=== PATIENT | male | born 1960 | race African-American/Black ===

== ENCOUNTER 2025-08-27 20:41 | Observation (INO) ==
--- NOTE | 2025-08-27 21:13 | DR.SOBA ---
HPI Time Seen Time Seen by Provider: 08/27/25 20:50 HPI Comment HPI Comment: Patient reports episode of severe shortness of breath at home earlier this evening after taking a shot of liquor. Patient reports that he tried to take a nebulized breathing treatment at home but the shortness of breath continued get worse and he got hot and sweaty and called EMS. EMS noted O2 sats to be in the 70s upon arrival and administered albuterol and placed the patient on oxygen via nasal cannula at 2 L after which oxygen saturations improved to upper 90s. On examination in the emergency room patient is at rest and in no distress on 2 L of oxygen via nasal cannula. Patient denies any associated symptoms including fever, shortness of breath earlier in the day, fatigue or other constitutional symptoms. Patient reports that he does not have a PCP in our area and that he just moved here from [facility] approximately 3 weeks ago. Of note patient was seen in the emergency department on Sunday for similar problem. Patient reports that he does smoke and admits to smoking approximately 5 cigarettes daily. PMH PMH Past Medical History: COPD and Hypertension Past Surgical History: Yes Surgical History: Abdominal Surgery Social History Do you use any recreational Drugs:: Yes (THC) ROS Review of Systems Constitutional: No Symptoms Reported; negative Chills, Fever or Fatigue Eyes: No Symptoms Reported ENTM: No Symptoms Reported Respiratoy: No Symptoms Reported, See HPI, Short of Breath and Wheezing; negative Stridor or Hemoptysis Cardiovascular: No Symptoms Reported; negative Chest Pain, Palpitations, Syncope or Cyanosis Gastrointestinal/Abdominal: No Symptoms Reported Genitourinary: No Symptoms Reported Neurological: No Symptoms Reported Musculoskeletal: No Symptoms Reported Integumentary: No Symptoms Reported Hematologic/Lymphatic: No Symptoms Reported Endocrine: No Symptoms Reported Psychiatric: No Symptoms Reported All Other Systems: Reviewed and Negative PE Vital Signs Vitals: Vital Signs Temperature 98.5 F Pulse Rate 72 Pulse Rate 73 Pulse Rate 89 Pulse Rate 69 Pulse Rate 69 Pulse Rate 72 Pulse Rate 92 Pulse Rate 79 Pulse Rate 79 Pulse Rate 71 Pulse Rate 73 Pulse Rate 71 Pulse Rate 73 Pulse Rate 78 Pulse Rate 75 Pulse Rate 84 Pulse Rate 87 Pulse Rate 86 Respiratory Rate 23 Respiratory Rate 17 Respiratory Rate 27 Respiratory Rate 18 Respiratory Rate 19 Respiratory Rate 18 Respiratory Rate 33 Respiratory Rate 24 Respiratory Rate 22 Respiratory Rate 18 Respiratory Rate 22 Respiratory Rate 19 Respiratory Rate 24 Respiratory Rate 23 Respiratory Rate 21 Respiratory Rate 27 Respiratory Rate 28 Respiratory Rate 24 Blood Pressure 149/83 Blood Pressure 147/80 Blood Pressure 183/97 Blood Pressure 181/79 Blood Pressure 141/79 Blood Pressure 142/86 Blood Pressure 146/89 Blood Pressure 176/102 O2 Sat by Pulse Oximetry 99 O2 Sat by Pulse Oximetry 99 O2 Sat by Pulse Oximetry 94 O2 Sat by Pulse Oximetry 100 O2 Sat by Pulse Oximetry 99 O2 Sat by Pulse Oximetry 99 O2 Sat by Pulse Oximetry 100 O2 Sat by Pulse Oximetry 100 O2 Sat by Pulse Oximetry 100 O2 Sat by Pulse Oximetry 100 O2 Sat by Pulse Oximetry 100 O2 Sat by Pulse Oximetry 100 O2 Sat by Pulse Oximetry 99 O2 Sat by Pulse Oximetry 99 O2 Sat by Pulse Oximetry 99 O2 Sat by Pulse Oximetry 99 O2 Sat by Pulse Oximetry 98 General Limitations: No Limitations General Appearance: Alert and In No Apparent Distress Head Head Exam: Normal Inspection Eyes Eye exam: Normal Appearance ENT ENT Exam: Normal Exam Neck Neck Exam: Normal Inspection Chest Chest Inspection: Normal Inspection Respiratory Respiratory Exam: Prolonged Expiratory Phase and Other (Expiratory wheezing) Respiratory Exam: Bilateral: Clear to Auscultation Cardiovascular Cardiovascular Exam: Regular Rate and Normal Rhythm Abdominal Exam Abdominal Exam: Normal Inspection, Normal Bowel Sounds and Soft Extremities Extremities Exam: Normal Inspection Back Back Exam: Normal Inspection Neurologic Neurological Exam: Alert and Oriented X3 Psychiatric Psychiatric Exam: Normal Affect and Normal Mood Skin Skin Exam: Warm, Dry, Intact and Normal Color COURSE Treatment Treatment: Patient showed some improvement with Solu-Medrol and DuoNebs via EMS and oxygen at 2 L via nasal cannula in the emergency department. Patient has not been able to tolerate coming off of oxygen, becoming diaphoretic after just a few seconds after removing the oxygen. Plan to continue Solu-Medrol every 8 hours. Continue DuoNebs every 4 hours. Discussed admission, patient is agreeable. Consultation Consultation Comments: Discussed case with Dr. Church and she is agreeable to admission. Critical Care Notes Total Time (mins): 33 Critical Diagnosis: Respiratory distress, COPD exacerbation Critical Interventions: Oxygen, steroids, nebulizer. Time spent evaluating patient, ordering and reviewing diagnostic studies, arranging for admission. ROR Labs Reviewed Laboratory Results Reviewed?: Yes 08/27/25 21:12 08/27/25 21:12 Laboratory: WBC 11.8 X10^3/uL (3.6-10.0) H 08/27/25 21:12 RBC 4.19 X10^6/uL (4.7-6.0) L 08/27/25 21:12 Hgb 13.5 g/dL (13.5-18.0) 08/27/25 21:12 Hct 40.7 % (42.0-54.0) L 08/27/25 21:12 MCV 97.1 fL (80.0-100.0) 08/27/25 21:12 MCH 32.2 pg (27.0-34.0) 08/27/25 21:12 MCHC 33.2 g/dL (33.0-35.0) 08/27/25 21:12 RDW 14.1 % (11.6-16.5) 08/27/25 21:12 Plt Count 222 X10^3/uL (150.0-450.0) 08/27/25 21:12 MPV 7.7 fL (7.4-11.0) 08/27/25 21:12 Neut % (Auto) 74.6 % (42.0-75.0) 08/27/25 21:12 Lymph % (Auto) 15.9 % (21.0-51.0) L 08/27/25 21:12 Whiteside % (Auto) 6.8 % (0.0-13.0) 08/27/25 21:12 Eos % (Auto) 2.0 % (0.9-2.9) 08/27/25 21:12 Baso % (Auto) 0.7 % (0.2-1.0) 08/27/25 21:12 Neut # (Auto) 8.8 x10^3/uL (2.2-4.8) H 08/27/25 21:12 Lymph # (Auto) 1.9 X10^3/uL (1.3-2.9) 08/27/25 21:12 Whiteside # (Auto) 0.8 x10^3/uL (0.3-0.8) 08/27/25 21:12 Eos # (Auto) 0.2 x10^3/uL (0.0-0.2) 08/27/25 21:12 Baso # (Auto) 0.1 X10^3/uL (0.0-0.1) 08/27/25 21:12 Absolute Nucleated RBC 0.0 /100WBC 08/27/25 21:12 Sodium 142 mmol/L (136-145) 08/27/25 21:12 Corrected Sodium TNP 08/27/25 21:12 Potassium 4.0 mmol/L (3.5-5.1) 08/27/25 21:12 Chloride 104 mmol/L (98-107) 08/27/25 21:12 Carbon Dioxide 30.3 mmol/L (21-32) 08/27/25 21:12 BUN 21 mg/dL (7-18) H 08/27/25 21:12 Creatinine 0.94 mg/dL (0.70-1.30) 08/27/25 21:12 Est GFR (MDRD) Af Amer > 60 (>60) 08/27/25 21:12 Est GFR (MDRD) Non-Af > 60 (>60) 08/27/25 21:12 Glucose 80 mg/dL (65-99) 08/27/25 21:12 Calcium 8.4 mg/dL (8.5-10.1) L 08/27/25 21:12 Corrected Calcium 9.1 mg/dL (8.5-10.1) 08/27/25 21:12 Total Bilirubin 0.30 mg/dL (0.2-1.0) 08/27/25 21:12 AST 37 Units/L (15-37) 08/27/25 21:12 ALT 57 Units/L (12-78) 08/27/25 21:12 Alkaline Phosphatase 55 Units/L (46-116) 08/27/25 21:12 Creatine Kinase 198 Units/L (39-308) 08/27/25 21:12 Troponin I High Sens 38.9 ng/L (4.0-60.0) 08/27/25 21:12 Total Protein 6.9 g/dL (6.4-8.2) 08/27/25 21:12 Albumin 3.1 g/dL (3.4-5.0) L 08/27/25 21:12 Globulin 3.8 g/dL (2.5-4.5) 08/27/25 21:12 Albumin/Globulin Ratio 0.8 Ratio (1.1-2.1) L 08/27/25 21:12 Other Results Comments: Name: Serjio Jones : 1960 Sex: M Location: ER Order Number(s): [id number] Procedure(s):CHEST CT W/O CON Ordering Physician: Benjamin Miller Primary Care: NFD,None Service Date: 08/27/25 Service Time: 2305 EXAM: CT CHEST WITHOUT CONTRAST HISTORY: Short of breath COMPARISON: None. TECHNIQUE: Axial images were acquired of the chest without IV contrast. Sagittal and coronal reformatted images were provided. All images were reviewed in a variety of windows and levels. 3D MIPS were performed and reviewed. RADIATION REDUCTION TECHNIQUE: Automated exposure control, Adjustment of the mA and/or kV according to patient size, or iterative reconstruction techniques were used. FINDINGS: CHEST: Please note that lack of IV contrast limits evaluation of soft tissue structures and vascular detail THYROID GLAND: The thyroid gland is grossly unremarkable. HEART AND VESSELS: The heart size is within normal limits. There is no evidence of a pericardial effusion. The thoracic aorta is normal is size without evidence of an aneurysm. The main pulmonary artery size is within normal limits. LYMPHNODES: There is no evidence of axillary, mediastinal, or hilar lymphadenopathy. AIRWAY: Severe emphysematous changes are noted. There is a small focus of ground-glass opacities that is located in the retrocardiac posterior left lower lobe. The precise etiology of this is not clear. This could be due to acute or chronic process. There is no pleural effusion or pneumothorax. LUNGS: The lungs are clear. No focal consolidation, pleural effusion, or pneumothorax is seen. ESOPHAGUS: The esophagus is grossly unremarkable. BONES: The visualized bones demonstrate degenerative changes. There are no concerning lytic or blastic lesions identified. UPPER ABDOMINAL STRUCTURES: The visualized portions of the upper abdominal structures are unremarkable. IMPRESSION: 1. Severe emphysematous changes are noted. 2. There is a small focus of ground-glass opacities that is located in the retrocardiac posterior left lower lobe. The precise etiology of this is not clear. This could be due to acute or chronic process. 3. The heart size is within normal limits. THIS IS AN ELECTRONICALLY VERIFIED FINAL REPORT 08/27/2025 11:38 PM - Electronically signed by Sam Phelps MD XRAY X-ray Results: Name: Serjio Jones : 1960 Sex: M Location: ER Order Number(s): [id number] Procedure(s):CHEST, PA/LAT ADULT X-RAY Ordering Physician: Benjamin Miller Primary Care: AMOS,None Service Date: 08/27/25 Service Time: 2100 EXAM: CHEST 2 VIEWS HISTORY: Shortness of Breath; Patient brought in er via ems with complaints of acute onset SOB that started 15 mins prior to arrival. Per ems upon arrival to scene pt O2 sat was 78% on room air with a RR of 40. Ems administered an albuteral treatment and symptoms improved. pt denies pain and verbalizes relief of symptoms upon er arrival. Albuteral neb tx X3 today. pt was seen at [facility] er on 08/25 and was dx with COPD. COMPARISON: Portable chest x-ray dated August 25, 2025 TECHNIQUE: Frontal and lateral views of the chest were submitted for interpretation. FINDINGS: Severe emphysematous changes are redemonstrated complicating interpretation of this exam. There is a vertically oriented linear area of relative increased density at the right upper to mid lung zone levels that could be due to summation of shadows however can not exclude airspace disease. No evidence for pleural effusion. No evidence for pneumothorax. Heart size and pulmonary vasculature are within normal limits. IMPRESSION: Severe emphysematous changes are redemonstrated complicating interpretation of this exam. There is a vertically oriented linear area of relative increased density at the right upper to mid lung zone that could be due to summation of shadows however can not exclude airspace disease. Consider CT of the chest for further evaluation. THIS IS AN ELECTRONICALLY VERIFIED FINAL REPORT 08/27/2025 9:55 PM - Electronically signed by Luis Cross DO Opioid Opioid Risk Tool Age (Evin box if 16-45): No History of Preadolescent Sexual Abuse: No Total: 0 Total Score Risk Category: Low Risk Copyright: Darrian RIVAS predicting aberrant behaviors Discharge Plan Diagnosis Discharge Problem: COPD exacerbation, Acute respiratory distress Discharge Plan Patient Disposition: ADMITTED INPATIENT Condition: Stable Prescriptions: No Action amiodarone 200 mg Tablet 200 mg PO BID metoprolol tartrate 25 mg Tablet 25 mg PO BID Eliquis 5 mg Tablet 5 mg PO BID ipratropium-albuterol 0.5 mg-3 mg(2.5 mg base)/3 mL Solution For Nebulization 3 ml INHALATION Q6H PRN30 Days Qty: 360 1RF albuterol sulfate 90 mcg/actuation Hfa Aerosol Inhaler 2 puff INHALATION Q4-6H PRN30 Days Qty: 1 1RF budesonide-formoterol [Symbicort] 160-4.5 mcg/actuation Hfa Aerosol Inhaler 2 puff INHALATION DAILY 30 Days Qty: 1 1RF Health Concerns: Post Hospitalization: new medications and changes needed to prevent readmission or further decline. Pt educated and given instructions on all concerns. Plan of Treatment: Continue with present treatment and follow up plan. Pt is to keep follow up appointment as instructed and take medications as ordered. Orders to Discharge Patient Discharge Orders: Transfer (Routine); Ordered 08/28/25 Ordered By: Benjamin Miller Follow ups/Referrals Follow ups/Referrals: NFD,None [Primary Care Provider] - 3 days Instructions Stand Alone Forms: Find Help Web Site, Post Hospital Follow Up Care Print Language: SWEDISH
--- NOTE | 2025-08-27 21:18 | EKG ---
Test Reason : Shortness of breath Blood Pressure : */* mmHG Vent. Rate : 78 BPM Atrial Rate : 78 BPM P-R Int : 130 ms QRS Dur : 96 ms QT Int : 382 ms P-R-T Axes : 83 -6 80 degrees QTc Int : 435 ms Normal sinus rhythm Anterior infarct (cited on or before 25-AUG-2025) Abnormal ECG When compared with ECG of 25-AUG-2025 19:08, Incomplete right bundle branch block is no longer present Confirmed by Bennie Burch MD ([id number]) on 08/28/2025 6:47:33 AM Referred By: Confirmed By: Bennie Burch MD
[2025-08-27 21:23] LABS: RED CELL DISTRIBUTION WIDTH 14.1 % (11.6-16.5)
[2025-08-27 21:27] LABS: MEAN PLATELET VOLUME 7.7 fL (7.4-11.0)
[2025-08-27 21:37] LABS: COR CA(FOR HYPOALB) 9.1 mg/dL (8.5-10.1); CREATININE 0.94 mg/dL (0.70-1.30); eGFR NON BLACK RACES > 60 (>60)
--- NOTE | 2025-08-27 21:59 | RAD ---
EXAM: CHEST 2 VIEWS HISTORY: Shortness of Breath; Patient brought in er via ems with complaints of acute onset SOB that started 15 mins prior to arrival. Per ems upon arrival to scene pt O2 sat was 78% on room air with a RR of 40. Ems administered an albuteral treatment and symptoms improved. pt denies pain and verbalizes relief of symptoms upon er arrival. Albuteral neb tx X3 today. pt was seen at [facility] er on 08/25 and was dx with COPD. COMPARISON: Portable chest x-ray dated August 25, 2025 TECHNIQUE: Frontal and lateral views of the chest were submitted for interpretation. FINDINGS: Severe emphysematous changes are redemonstrated complicating interpretation of this exam. There is a vertically oriented linear area of relative increased density at the right upper to mid lung zone levels that could be due to summation of shadows however can not exclude airspace disease. No evidence for pleural effusion. No evidence for pneumothorax. Heart size and pulmonary vasculature are within normal limits. IMPRESSION: Severe emphysematous changes are redemonstrated complicating interpretation of this exam. There is a vertically oriented linear area of relative increased density at the right upper to mid lung zone that could be due to summation of shadows however can not exclude airspace disease. Consider CT of the chest for further evaluation. THIS IS AN ELECTRONICALLY VERIFIED FINAL REPORT 08/27/2025 9:55 PM - Electronically signed by Luis Cross DO
[2025-08-27] MEDS: APRESOLINE INJ 20 MG VIAL IVP ONE (22:02)
--- NOTE | 2025-08-27 23:42 | CT ---
EXAM: CT CHEST WITHOUT CONTRAST HISTORY: Short of breath COMPARISON: None. TECHNIQUE: Axial images were acquired of the chest without IV contrast. Sagittal and coronal reformatted images were provided. All images were reviewed in a variety of windows and levels. 3D MIPS were performed and reviewed. RADIATION REDUCTION TECHNIQUE: Automated exposure control, Adjustment of the mA and/or kV according to patient size, or iterative reconstruction techniques were used. FINDINGS: CHEST: Please note that lack of IV contrast limits evaluation of soft tissue structures and vascular detail THYROID GLAND: The thyroid gland is grossly unremarkable. HEART AND VESSELS: The heart size is within normal limits. There is no evidence of a pericardial effusion. The thoracic aorta is normal is size without evidence of an aneurysm. The main pulmonary artery size is within normal limits. LYMPHNODES: There is no evidence of axillary, mediastinal, or hilar lymphadenopathy. AIRWAY: Severe emphysematous changes are noted. There is a small focus of ground-glass opacities that is located in the retrocardiac posterior left lower lobe. The precise etiology of this is not clear. This could be due to acute or chronic process. There is no pleural effusion or pneumothorax. LUNGS: The lungs are clear. No focal consolidation, pleural effusion, or pneumothorax is seen. ESOPHAGUS: The esophagus is grossly unremarkable. BONES: The visualized bones demonstrate degenerative changes. There are no concerning lytic or blastic lesions identified. UPPER ABDOMINAL STRUCTURES: The visualized portions of the upper abdominal structures are unremarkable. IMPRESSION: 1. Severe emphysematous changes are noted. 2. There is a small focus of ground-glass opacities that is located in the retrocardiac posterior left lower lobe. The precise etiology of this is not clear. This could be due to acute or chronic process. 3. The heart size is within normal limits. THIS IS AN ELECTRONICALLY VERIFIED FINAL REPORT 08/27/2025 11:38 PM - Electronically signed by Sam Phelps MD
[2025-08-28 00:43] LABS: ABG BASE EXCESS 5.8 mmol/L (-2.0-2.0); ABG OXYGEN SATURATION 89.0 % (90-100); ABG PH 7.390 (7.35-7.45); ABG PO2 57.0 mmHg (80.0-100.0)
[2025-08-28 00:44] LABS: ABG PCO2 53.0 mmHg (35.0-45.0)
[2025-08-28 00:45] LABS: ABG ALLEN TEST POS; ABG HCO3 32.1 mmol/L (22-26)
[2025-08-28] MEDS ORDERED: ULTRAM PO PRN (01:33)
[2025-08-28] MEDS ORDERED: TYLENOL 325 MG TAB PO PRN (01:33)
[2025-08-28] MEDS ORDERED: MORPHINE SULFATE INJ 2 MG INJ IVP PRN (01:33)
[2025-08-28] MEDS ORDERED: NORCO 5/325 MG TAB PO PRN (01:33)
[2025-08-28 02:05] VITALS: BMI 18.4
[2025-08-28] MEDS: DUONEB 0.5 MG/3 MG (3 mL) NEB SCH (05:28)
[2025-08-28 05:58] LABS: COR CA(FOR HYPOALB) 9.4 mg/dL (8.5-10.1); COR NA(FOR HYPERGLY) 143 mmol/L (136-145); CREATININE 1.08 mg/dL (0.70-1.30); MEAN PLATELET VOLUME 8.8 fL (7.4-11.0); RED CELL DISTRIBUTION WIDTH 13.8 % (11.6-16.5); eGFR NON BLACK RACES > 60 (>60)
[2025-08-28] MEDS ORDERED: DUONEB 0.5 MG/3 MG (3 mL) NEB SCH (06:00)
[2025-08-28 06:50] LABS: BAND NEUTROPHILS % 1 % (0-10); PLATELET MORPHOLOGY COMMENT NORMAL (NORMAL)
[2025-08-28] MEDS: CONSULT PHARMACY - POTASSIUM & MAGNESIUM XX SCH (07:10)
[2025-08-28] MEDS: LOPRESSOR TAB 25 MG PO SCH (08:22)
[2025-08-28] MEDS: ELIQUIS PO SCH (08:22)
[2025-08-28] MEDS: ROBITUSSIN DM PO SCH (08:22)
[2025-08-28] MEDS: PROTONIX TAB 40 MG PO SCH (08:22)
[2025-08-28] MEDS: CORDARONE TAB 200 MG PO SCH (08:22)
[2025-08-28] MEDS: PULMICORT NEB TX 0.5 MG NEB SCH (08:50)
--- NOTE | 2025-08-28 12:28 | DR.H&P ---
H&P History & Physical for Day of: H&P Date: 08/28/25 Chief Complaint Chief Complaint: SOB, CCC History of Present Illness History of Present Illness: Patient reports episode of severe shortness of breath at home earlier this evening after taking a shot of liquor. Patient reports that he tried to take a nebulized breathing treatment at home but the shortness of breath continued get worse and he got hot and sweaty and called EMS. EMS noted O2 sats to be in the 70s upon arrival and administered albuterol and placed the patient on oxygen via nasal cannula at 2 L after which oxygen saturations improved to upper 90s. On examination in the emergency room patient is at rest and in no distress on 2 L of oxygen via nasal cannula. Patient denies any associated symptoms including fever, shortness of breath earlier in the day, fatigue or other constitutional symptoms. Patient reports that he does not have a PCP in our area and that he just moved here from [facility] approximately 3 weeks ago. Of note patient was seen in the emergency department on Sunday for similar problem. Past Medical History Past Medical History: COPD and Hypertension Past Surgical History Surgical History: Abdominal Surgery Social History Does patient currently use any type of tobacco product: Yes Have you used tobacco products in the last 12 months: Yes Type of Tobacco Use: Cigarettes Does any household member use tobacco: Yes Alcohol Use: Occasionally Drug Use: Cocaine and Marijuana Medications Home Medications: Home Medications Medication Instructions Recorded Confirmed Type amiodarone 200 mg tablet 200 mg PO BID 08/25/2508/28 History apixaban 5 mg tablet (Eliquis) 5 mg PO BID 08/25/25 History metoprolol tartrate 25 mg tablet 25 mg PO BID 08/25/25 08/28/25 History Allergies Allergies Allergy/AdvReac Type Severity Reaction Status Date / Time No Known Allergies Allergy Verified 08/25/25 19:02 Labs 08/28/25 04:37 08/28/25 04:37 Labs: 08/28/25 06:00 Sputum - Expectorated Sputum - Final Laboratory WBC 10.9 X10^3/uL (3.6-10.0) H 08/28/25 04:37 RBC 4.21 X10^6/uL (4.7-6.0) L 08/28/25 04:37 Hgb 13.7 g/dL (13.5-18.0) 08/28/25 04:37 Hct 40.8 % (42.0-54.0) L 08/28/25 04:37 MCV 97.0 fL (80.0-100.0) 08/28/25 04:37 MCH 32.6 pg (27.0-34.0) 08/28/25 04:37 MCHC 33.6 g/dL (33.0-35.0) 08/28/25 04:37 RDW 13.8 % (11.6-16.5) 08/28/25 04:37 Plt Count 229 X10^3/uL (150.0-450.0) 08/28/25 04:37 Plt Count Comment Adequate (ADEQUATE) 08/28/25 04:37 MPV 8.8 fL (7.4-11.0) 08/28/25 04:37 Neut % (Auto) 92.8 % (42.0-75.0) H 08/28/25 04:37 Lymph % (Auto) 6.1 % (21.0-51.0) L 08/28/25 04:37 Bailey % (Auto) 0.8 % (0.0-13.0) 08/28/25 04:37 Eos % (Auto) 0.0 % (0.9-2.9) L 08/28/25 04:37 Baso % (Auto) 0.3 % (0.2-1.0) 08/28/25 04:37 Neut # (Auto) 10.1 x10^3/uL (2.2-4.8) H 08/28/25 04:37 Lymph # (Auto) 0.7 X10^3/uL (1.3-2.9) L 08/28/25 04:37 Bailey # (Auto) 0.1 x10^3/uL (0.3-0.8) L 08/28/25 04:37 Eos # (Auto) 0.0 x10^3/uL (0.0-0.2) 08/28/25 04:37 Baso # (Auto) 0.0 X10^3/uL (0.0-0.1) 08/28/25 04:37 Absolute Nucleated RBC 0.1 /100WBC 08/28/25 04:37 Total Counted 100 08/28/25 04:37 Neutrophils % (Manual) 89 % (39-76) H 08/28/25 04:37 Band Neutrophils % 1 % (0-10) 08/28/25 04:37 Lymphocytes % (Manual) 10 % (13-43) L 08/28/25 04:37 Plt Morphology Comment Normal (NORMAL) 08/28/25 04:37 RBC Morphology Normal (NORMAL) 08/28/25 04:37 Sample Site R rad 08/28/25 00:38 ABG pH 7.390 (7.35-7.45) 08/28/25 00:38 ABG pCO2 53.0 mmHg (35.0-45.0) H* 08/28/25 00:38 ABG pO2 57.0 mmHg (80.0-100.0) L 08/28/25 00:38 ABG HCO3 32.1 mmol/L (22-26) H* 08/28/25 00:38 ABG O2 Saturation 89.0 % (90-100) L 08/28/25 00:38 ABG Base Excess 5.8 mmol/L (-2.0-2.0) H 08/28/25 00:38 Bradford Test Pos 08/28/25 00:38 A-a Gradient 26.0 mmHg 08/28/25 00:38 FiO2 21.0 08/28/25 00:38 Blood Gas Comments 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 08/28/25 00:38 Sodium 142 mmol/L (136-145) 08/28/25 04:37 Corrected Sodium 143 mmol/L (136-145) 08/28/25 04:37 Potassium 4.6 mmol/L (3.5-5.1) 08/28/25 04:37 Chloride 103 mmol/L (98-107) 08/28/25 04:37 Carbon Dioxide 29.7 mmol/L (21-32) 08/28/25 04:37 BUN 22 mg/dL (7-18) H 08/28/25 04:37 Creatinine 1.08 mg/dL (0.70-1.30) 08/28/25 04:37 Est GFR (MDRD) Af Amer > 60 (>60) 08/28/25 04:37 Est GFR (MDRD) Non-Af > 60 (>60) 08/28/25 04:37 Glucose 123 mg/dL (65-99) H 08/28/25 04:37 Calcium 8.6 mg/dL (8.5-10.1) 08/28/25 04:37 Corrected Calcium 9.4 mg/dL (8.5-10.1) 08/28/25 04:37 Total Bilirubin 0.50 mg/dL (0.2-1.0) 08/28/25 04:37 AST 35 Units/L (15-37) 08/28/25 04:37 ALT 53 Units/L (12-78) 08/28/25 04:37 Alkaline Phosphatase 57 Units/L (46-116) 08/28/25 04:37 Creatine Kinase 198 Units/L (39-308) 08/27/25 21:12 Troponin I High Sens 38.9 ng/L (4.0-60.0) 08/27/25 21:12 B-Natriuretic Peptide 84.0 pg/mL (0-79) H 08/27/25 21:12 Total Protein 6.8 g/dL (6.4-8.2) 08/28/25 04:37 Albumin 3.0 g/dL (3.4-5.0) L 08/28/25 04:37 Globulin 3.8 g/dL (2.5-4.5) 08/28/25 04:37 Albumin/Globulin Ratio 0.8 Ratio (1.1-2.1) L 08/28/25 04:37 Review of Systems Constitutional: Weakness Eyes: No Symptoms Reported ENT: Nose Congestion Respiratory: Cough, Shortness of Breath and Sputum Cardiovascular: No Symptoms Reported Gastrointestinal: Nausea Genitourinary: No Symptoms Reported Musculoskeletal: No Symptoms Reported Skin: No Symptoms Reported Neurological: No Symptoms Reported Physical Exam Vital Signs: Vital Signs Temperature 97.9 F Temperature 97.9 F Pulse Rate [Left Brachial] 68 Pulse Rate [Left Brachial] 78 Pulse Rate 66 Pulse Rate 74 Pulse Rate 68 Pulse Rate 66 Pulse Rate 70 Pulse Rate 76 Pulse Rate 76 Pulse Rate 65 Pulse Rate 67 Pulse Rate 68 Pulse Rate 66 Pulse Rate 66 Pulse Rate 62 Pulse Rate 66 Pulse Rate 67 Pulse Rate 65 Pulse Rate 66 Pulse Rate 67 Pulse Rate 68 Pulse Rate 71 Pulse Rate 68 Pulse Rate 68 Pulse Rate 68 Pulse Rate 75 Pulse Rate 80 Pulse Rate 70 Pulse Rate 69 Pulse Rate 69 Pulse Rate 80 Pulse Rate 80 Respiratory Rate 50 Respiratory Rate 35 Respiratory Rate 48 Respiratory Rate 26 Respiratory Rate 53 Respiratory Rate 37 Respiratory Rate 29 Respiratory Rate 34 Respiratory Rate 17 Respiratory Rate 26 Respiratory Rate 33 Respiratory Rate 33 Respiratory Rate 39 Respiratory Rate 23 Respiratory Rate 24 Respiratory Rate 20 Respiratory Rate 49 Respiratory Rate 42 Respiratory Rate 37 Respiratory Rate 16 Respiratory Rate 23 Respiratory Rate 26 Respiratory Rate 26 Blood Pressure [Right Arm] 124/71 Blood Pressure [Right Arm] 162/91 Blood Pressure 140/74 Blood Pressure 135/71 Blood Pressure 150/89 Blood Pressure 127/81 Blood Pressure 136/78 Blood Pressure 109/52 Blood Pressure 127/68 Blood Pressure 126/63 Blood Pressure 124/71 Blood Pressure 115/70 Blood Pressure 138/75 Blood Pressure 125/75 Blood Pressure 134/85 O2 Sat by Pulse Oximetry 97 O2 Sat by Pulse Oximetry 98 O2 Sat by Pulse Oximetry 98 O2 Sat by Pulse Oximetry 99 O2 Sat by Pulse Oximetry 100 O2 Sat by Pulse Oximetry 100 O2 Sat by Pulse Oximetry 100 O2 Sat by Pulse Oximetry 100 O2 Sat by Pulse Oximetry 100 O2 Sat by Pulse Oximetry 99 O2 Sat by Pulse Oximetry 99 O2 Sat by Pulse Oximetry 100 O2 Sat by Pulse Oximetry 100 O2 Sat by Pulse Oximetry 99 O2 Sat by Pulse Oximetry 100 O2 Sat by Pulse Oximetry 99 O2 Sat by Pulse Oximetry 99 O2 Sat by Pulse Oximetry 98 O2 Sat by Pulse Oximetry 99 O2 Sat by Pulse Oximetry 98 O2 Sat by Pulse Oximetry 100 O2 Sat by Pulse Oximetry 99 O2 Sat by Pulse Oximetry 99 O2 Sat by Pulse Oximetry 99 O2 Sat by Pulse Oximetry 99 O2 Sat by Pulse Oximetry 100 O2 Sat by Pulse Oximetry 100 O2 Sat by Pulse Oximetry 99 O2 Sat by Pulse Oximetry 100 O2 Sat by Pulse Oximetry 100 O2 Sat by Pulse Oximetry 93 O2 Sat by Pulse Oximetry 94 Oriented: Normal Eyes: Normal Ear: Normal Nose: Injected Throat: Red and Dry Respiratory: Wheezes Throughout, RLL Diminished and LLL Diminished Cardiovascular: Normal; negative Edema Auscultation: Bowel Sounds: Normal Palpation: Normal Tenderness: Normal Skin: Decreased Turgur Musculoskeletal: Normal Psychiatric: Normal Affect: Normal Speech Pattern: Clear and Appropriate Assessment/Plan (1) COPD exacerbation: Status: Acute Plan: ADMIT, RESP CONSULT ABG ON ADMISSION IV ATBX, IV HYDRATION DUO NEBS, SUPPLEMENTAL O2 SPUTUM CULTURE BP CONTROL AND CARDIAC MONITORING (2) Acute respiratory distress: Status: Acute
[2025-08-28 12:33] LABS: ABG BASE EXCESS 6.1 mmol/L (-2.0-2.0); ABG OXYGEN SATURATION 87.0 % (90-100); ABG PCO2 46.0 mmHg (35.0-45.0); ABG PH 7.440 (7.35-7.45); ABG PO2 51.0 mmHg (80.0-100.0)
[2025-08-28 12:34] LABS: ABG ALLEN TEST POS; ABG HCO3 31.2 mmol/L (22-26)
[2025-08-29 05:45] LABS: MEAN PLATELET VOLUME 9.0 fL (7.4-11.0); RED CELL DISTRIBUTION WIDTH 14.0 % (11.6-16.5)
[2025-08-29 06:03] LABS: COR CA(FOR HYPOALB) 9.4 mg/dL (8.5-10.1); COR NA(FOR HYPERGLY) 140 mmol/L (136-145); CREATININE 0.86 mg/dL (0.70-1.30); eGFR NON BLACK RACES > 60 (>60)
[2025-08-29 07:24] LABS: PLATELET MORPHOLOGY COMMENT NORMAL (NORMAL)
[2025-08-29] MEDS: AVELOX IV 400 MG/250 ML BAG 400 MG/250 ML PIGGYBACK IV SCH (15:20)
[2025-08-29] MEDS: NS 250 ML IV 25 ML IV PRN (15:27)
[2025-08-29] MEDS: ZOSYN VIAL 3.375 GRAMS 3.375 G in NS 100 ML IV 100 ML IV SCH (15:27)
[2025-08-29] MEDS ORDERED: PULMICORT NEB TX 0.5 MG NEB ONE (19:22)
[2025-08-29] MEDS: PULMICORT NEB TX 0.5 MG NEB SCH (20:33)
[2025-08-30 05:34] LABS: CREATININE 0.91 mg/dL (0.70-1.30); eGFR NON BLACK RACES > 60 (>60)
[2025-08-30 05:35] LABS: MEAN PLATELET VOLUME 9.2 fL (7.4-11.0); RED CELL DISTRIBUTION WIDTH 14.3 % (11.6-16.5)
[2025-08-30 05:55] LABS: COR CA(FOR HYPOALB) 9.5 mg/dL (8.5-10.1)
[2025-08-30 06:19] LABS: BAND NEUTROPHILS % 2 % (0-10); METAMYELOCYTES % 1; PLATELET MORPHOLOGY COMMENT NORMAL (NORMAL)
--- NOTE | 2025-08-30 07:30 | RAD ---
EXAM: Chest PA and lateral views HISTORY: COPD COMPARISON: 08/27/2025 FINDINGS: Heart size normal. Symmetric pulmonary hyperinflation as before. Linear density again noted in the right mid lung posteriorly without definite airspace involvement, mass formation, adenopathy or pleural disease. IMPRESSION: No change. COPD/emphysema. Stable linear density in the right lung consistent with fissural fibrosis and/or subsegmental atelectasis. THIS IS AN ELECTRONICALLY VERIFIED FINAL REPORT 08/30/2025 7:27 AM - Electronically signed by Jeyson Palacios MD
[2025-08-31 05:43] LABS: MEAN PLATELET VOLUME 8.8 fL (7.4-11.0); RED CELL DISTRIBUTION WIDTH 14.2 % (11.6-16.5)
[2025-08-31 05:47] LABS: CREATININE 1.04 mg/dL (0.70-1.30); eGFR NON BLACK RACES > 60 (>60)
[2025-08-31 06:11] LABS: COR CA(FOR HYPOALB) 9.0 mg/dL (8.5-10.1)
[2025-08-31] MEDS ORDERED: CONSULT PHARMACY - POTASSIUM & MAGNESIUM XX SCH (07:00)
--- NOTE | 2025-08-31 07:41 | RAD ---
EXAM: Two-view chest HISTORY: COPD, leukocytosis COMPARISON: 08/30/2025 FINDINGS: Heart size is normal. Tyesha are normal. Lungs are hyperinflated. Right-sided perihilar subsegmental atelectasis is present unchanged from the prior examination. There is new left upper lobe infiltrate suggestive of pneumonia. Remainder of the lung strong appear free of acute infiltrates. No pneumothorax or pleural effusion identified. Bony thorax is unremarkable. IMPRESSION: New left upper lobe infiltrates suggestive of developing pneumonia COPD Chronic right-sided perihilar subsegmental atelectasis THIS IS AN ELECTRONICALLY VERIFIED FINAL REPORT 08/31/2025 7:38 AM - Electronically signed by Sam Florez MD
[2025-08-31 07:51] VITALS: BP 157/76; PULSE 66; RESP 18; TEMP 97.8; O2SAT 94
[2025-08-31] MEDS: K-DUR TAB 20 MEQ PO ONE (09:18)
== END 2025-08-31 10:00 | disposition home or self-care (01) ==
LOC: ICU 20:41 → ER 20:41 → ICU 08-28 01:16 → MED/SURG 08-30 14:03
PROVIDERS: ADMIT Internal Medicine; ATTEND Internal Medicine
DX: R94.4 Abnormal results of kidney function studies; Z72.0 Tobacco use; Z79.01 Long term (current) use of anticoagulants; I10 Essential (primary) hypertension; R94.31 Abnormal electrocardiogram [ECG] [EKG]; Z03.818 Encounter for observation for suspected exposure to other biological agents ruled out; D64.89 Other specified anemias; Z79.899 Other long term (current) drug therapy; R79.89 Other specified abnormal findings of blood chemistry; R06.03 Acute respiratory distress; D72.828 Other elevated white blood cell count; Z29.89 Encounter for other specified prophylactic measures; R06.02 Shortness of breath; J44.1 Chronic obstructive pulmonary disease with (acute) exacerbation; R73.09 Other abnormal glucose; F12.90 Cannabis use, unspecified, uncomplicated; E83.51 Hypocalcemia; F14.90 Cocaine use, unspecified, uncomplicated